=== PATIENT | female | born 1955 | race Caucasian/White ===

== ENCOUNTER 2022-12-12 03:23 | Emergency (ER) | payer MEDICAID, OTHER ==
[~2022-12-12] VITALS: Ht 165.1 cm; Wt 88.0 kg
[2022-12-12 04:23] LABS: Basophils # (auto) 0 10 ^3/uL (0-0.2); Basophils % (auto) 0.8 % (0.0-2.0); Eosinophils # (auto) 0.1 10 ^3/uL (0-0.8); Eosinophils % (auto) 2.5 % (0.0-7.0); Hemoglobin 12.9 g/dL (12.2-16.2); Lymphocytes # (auto) 1.1 10 ^3/uL (0.4-5.4); Lymphocytes % (auto) 25.5 % (10.0-50.0); Mean Corpuscular Hemoglobin 29.8 pg (28.0-32.0); Mean Corpuscular Volume 87.9 fL (80.0-100.0); Monocytes # (auto) 0.4 10 ^3/uL (0-1.3); Monocytes % (auto) 8.3 % (0.0-12.0); Neutrophils # (auto) 2.8 10 ^3/uL (1.6-8.6); Neutrophils % (auto) 62.9 % (37.0-80.0); Nucleated Red Blood Cells % 0.1 %; Red Blood Cells 4.32 10^6/uL (4.0-5.20); Red Cell Distribution Width 14.5 % (11.8-14.3); White Blood Cell 4.4 10^3/uL (4.4-10.8)
[2022-12-12 04:45] LABS: Albumin 3.5 g/dL (3.4-5.0); Calcium 8.9 mg/dL (8.5-10.1); Magnesium 2.2 mg/dL (1.6-2.6); Potassium 4.2 mmol/L (3.5-5.1)
[2022-12-12 04:48] LABS: Bilirubin, Total 0.3 mg/dL (0.2-1.0); Total Protein 6.9 g/dL (6.4-8.2)
[2022-12-12 05:07] LABS: INR 0.97 (0.9-1.15); Partial Thromboplastin Time 24.7 sec (24.6-33.4)
[2022-12-12] MEDS ORDERED: IOHEXOL 300 MG/ML 100ML BOTTLE IJ ONE (07:45)
[2022-12-12 10:03] LABS: Urine Bacteria NONE SEEN /hpf (None Seen); Urine Blood Negative /uL (Negative); Urine Specific Gravity 1.043 (1.001-1.035); Urine WBC <1 /hpf (0 - 5)
[2022-12-12 12:41] VITALS: BP 145/61
== END 2022-12-12 12:43 | disposition home or self-care (01) ==
LOC: EDBD 03:23 → ER 03:23 → EDUNIT# 03:23 → ER 12:43
DX: R06.89 Other abnormalities of breathing (principal); J38.5 Laryngeal spasm; R06.02 Shortness of breath; E89.0 Postprocedural hypothyroidism
CPT/HCPCS: 36415; 70491; 71045; 80053; 81001; 83735; 83880; 84484; 85025; 85610; 85730; 93005; 99285; Q9967

== ENCOUNTER 2024-03-17 18:22 | Inpatient (IN) | payer OTHER, MEDICAID ==
[~2024-03-17] VITALS: Ht 170.2 cm; Wt 82.0 kg
[2024-03-17 19:37] LABS: Base Excess 11.7 mmol/L (-2.0-3.0)
[2024-03-17] MEDS: ALBUTEROL SULF 2.5 MG/0.5ML(0.5%) NEB SOLN NEB ONE (19:57)
[2024-03-17] MEDS: IPRATROPIUM BROM 0.5 MG/2.5ML INH SOL NEB ONE (19:58)
[2024-03-17 20:05] LABS: Basophils # (auto) 0 10 ^3/uL (0-0.2); Basophils % (auto) 0.4 % (0.0-2.0); Eosinophils # (auto) 0 10 ^3/uL (0-0.8); Eosinophils % (auto) 0.4 % (0.0-7.0); Hematocrit 41.3 % (36.0-46.0); Lymphocytes # (auto) 0.5 10 ^3/uL (0.4-5.4); Lymphocytes % (auto) 6.7 % (10.0-50.0); Mean Corpuscular Hemoglobin 32.6 pg (28.0-32.0); Mean Corpuscular Hgb Conc. 33.9 g/dL (32.0-36.0); Mean Corpuscular Volume 96.3 fL (80.0-100.0); Monocytes # (auto) 0.7 10 ^3/uL (0-1.3); Monocytes % (auto) 8.8 % (0.0-12.0); Neutrophils # (auto) 6.6 10 ^3/uL (1.6-8.6); Neutrophils % (auto) 83.7 % (37.0-80.0); Nucleated Red Blood Cells % 0.1 %; Platelet Count (auto) 326 10^3/uL (140-450); Red Blood Cells 4.29 10^6/uL (4.0-5.20); Red Cell Distribution Width 13.4 % (11.8-14.3); White Blood Cell 7.8 10^3/uL (4.4-10.8)
[2024-03-17] MEDS: NOREPINEPHRINE 8 MG/250ML KIT 250 ML IV SCH (20:12)
[2024-03-17 20:24] LABS: Alanine Aminotransferase 124 U/L (7-40); Albumin 3.6 g/dL (3.2-4.8); Alkaline Phosphatase 118 U/L (46-116); Aspartate Aminotransferase 71 U/L (13-40); BUN/Creatinine Ratio 70.8 (10.0-20.0); Blood Urea Nitrogen 17 mg/dL (9-23); Calcium 9.1 mg/dL (8.7-10.4); Carbon Dioxide 39 mmol/L (20-30); Chloride 95 mmol/L (98-107); Glucose 112 mg/dL (74-106); Potassium 4.4 mmol/L (3.5-5.1); Sodium 133 mmol/L (136-145)
[2024-03-17 20:25] LABS: Bilirubin, Total 0.3 mg/dL (0.2-1.0); Total Protein 5.9 g/dL (5.7-8.2)
[2024-03-17 20:26] LABS: Anion Gap -1 (5-15)
[2024-03-17 20:49] LABS: INR 0.95 (0.9-1.15); Partial Thromboplastin Time 24.3 SEC (24.5-34.5); Prothrombin Time 10.1 sec (9.3-11.8)
[2024-03-17] MEDS: cefTRIAXone 1GM/50ML D5W 50 ML IV ONE (21:07)
[2024-03-17] MEDS: methylPREDNISolone SOD SUCC 125 MG/2 ML VL IV ONE (21:08)
[2024-03-17 21:37] LABS: Base Excess 11.4 mmol/L (-2.0-3.0)
[2024-03-17 21:57] LABS: Urine Bacteria FEW /hpf (None Seen); Urine Blood 2+ /uL (Negative); Urine Clarity Clear (Clear); Urine Color Yellow (Yellow); Urine Mucus FEW (None Seen); Urine Protein, UAD TRACE (Negative); Urine Specific Gravity 1.025 (1.001-1.035); Urine Urobilinogen 2 mg/dL (Negative); Urine WBC 16 /hpf (0 - 5); Urine pH 6.5 (5.0-9.0)
[2024-03-17 23:03] VITALS: BP 111/61; PULSE 89; RESP 18; TEMP 97.7; O2SAT 96
[2024-03-17] MEDS ORDERED: NITROGLYCERIN 0.4 MG SL TAB SL PRN (23:15)
[2024-03-17] MEDS ORDERED: IPRATROPIUM BROM 0.5 MG/2.5ML INH SOL NEB PRN (23:15)
[2024-03-17] MEDS ORDERED: ALBUTEROL SULF 2.5 MG/0.5ML(0.5%) NEB SOLN NEB PRN (23:15)
[2024-03-17] MEDS: SUCCINYLCHOLINE CHLORIDE 20 MG/ML 10ML VIAL IV ONE (23:30)
[2024-03-17] MEDS: ETOMIDATE (2MG/ML) 20ML VIAL IV ONE (23:30)
[2024-03-18] VITALS (9 sets, daily range): BP systolic 85–131; BP diastolic 46–80; PULSE 86–112; RESP 18; O2SAT 96–98
[2024-03-18] MEDS: SODIUM CHLORIDE 0.9% 1,000 ML IV SCH (00:27)
[2024-03-18 05:04] LABS: Base Excess 8.5 mmol/L (-2.0-3.0)
[2024-03-18 06:05] LABS: Hematocrit 40.4 % (36.0-46.0); Hemoglobin 13.7 g/dL (12.2-16.2); Mean Corpuscular Hemoglobin 32.6 pg (28.0-32.0); Mean Corpuscular Hgb Conc. 33.8 g/dL (32.0-36.0); Mean Corpuscular Volume 96.5 fL (80.0-100.0); Platelet Count (auto) 365 10^3/uL (140-450); Red Blood Cells 4.19 10^6/uL (4.0-5.20); Red Cell Distribution Width 13.3 % (11.8-14.3); White Blood Cell 8.2 10^3/uL (4.4-10.8)
[2024-03-18 06:13] LABS: Alanine Aminotransferase 116 U/L (7-40); Albumin 3.8 g/dL (3.2-4.8); Alkaline Phosphatase 101 U/L (46-116); Anion Gap 2 (5-15); Aspartate Aminotransferase 53 U/L (13-40); BUN/Creatinine Ratio 43.3 (10.0-20.0); Blood Urea Nitrogen 13 mg/dL (9-23); Calcium 9.3 mg/dL (8.7-10.4); Carbon Dioxide 37 mmol/L (20-30); Chloride 96 mmol/L (98-107); Glucose 159 mg/dL (74-106); Potassium 4.7 mmol/L (3.5-5.1); Sodium 135 mmol/L (136-145)
[2024-03-18 06:14] LABS: Bilirubin, Total 0.4 mg/dL (0.2-1.0); Total Protein 5.9 g/dL (5.7-8.2)
[2024-03-18 06:44] LABS: Band Neutrophils % (manual) 0; Basophils % (manual) 0 (0.0-2.0); Blast Cells 0; Eosinophils % (manual) 0 (0-7); Metamyelocytes % 0; Myelocytes % 0; Promyelocytes % 0; Reactive Lymphocytes 0
[2024-03-18 07:51] LABS: Lymphocytes % (manual) 1 (10.0-50.0); Monocytes % (manual) 1 (0-12); Platelet Estimate Adequate
[2024-03-18 09:34] LABS: Base Excess 15.1 mmol/L (-2.0-3.0)
[2024-03-18] MEDS: ENOXAPARIN SOD 40 MG/0.4 ML SYRINGE SC SCH (10:25)
[2024-03-18] MEDS: LORazepam 2MG/ML-1ML VIAL IV PRN (13:49)
[2024-03-18] MEDS: predniSONE 5 MG TAB PO SCH (16:15)
[2024-03-18] MEDS ORDERED: CEVI30CA8 PO (16:20)
[2024-03-18] MEDS ORDERED: MIRT1TAB38 PO (16:20)
[2024-03-18] MEDS ORDERED: CARV3.1240 PO (16:20)
[2024-03-18] MEDS ORDERED: SERT-289 PO (16:20)
[2024-03-18] MEDS ORDERED: LEVO125T7 PO (16:26)
[2024-03-18] MEDS: methylPREDNISolone SOD SUCC 40 MG/ML VL IV ONE (20:14)
[2024-03-18] MEDS ORDERED: cefTRIAXone 1GM/50ML D5W 50 ML IV SCH (21:00)
[2024-03-18] MEDS: CEVIMELINE PO SCH (22:00)
[2024-03-18] MEDS: cefTRIAXone 1GM/50ML D5W 50 ML IV SCH (23:49)
[2024-03-19] VITALS (13 sets, daily range): BP systolic 84–148; BP diastolic 53–85; PULSE 80–112; RESP 16–18; TEMP 97.5–98; O2SAT 95–100
[2024-03-19] MEDS: NOREPINEPHRINE 8 MG/250ML KIT 250 ML IV SCH (08:22)
[2024-03-19 09:29] LABS: Base Excess 14.8 mmol/L (-2.0-3.0)
[2024-03-19] MEDS: Jevity 1.2 Cal/Fiber 1 Liter GT SCH (10:13)
[2024-03-19] MEDS: SERTRALINE HCL 50 MG TAB PO SCH (10:29)
[2024-03-19] MEDS: MORPHINE SULFATE INJ 2 MG/ml SYRG IV PRN (22:29)
[2024-03-20] VITALS (22 sets, daily range): BP systolic 119–157; BP diastolic 56–82; PULSE 81–108; RESP 14–20; TEMP 97.4–99.6; O2SAT 93–100
[2024-03-20] MEDS: CARVEDILOL 3.125 MG TAB PO SCH (10:00)
[2024-03-20 14:46] LABS: Base Excess 13.8 mmol/L (-2.0-3.0)
[2024-03-20] MEDS: ONDANSETRON HCL 4 MG/2 ML VIAL IV PRN (15:50)
[2024-03-20] MEDS: ACETAMINOPHEN 325 MG TAB PO PRN (17:40)
[2024-03-21] VITALS (23 sets, daily range): BP systolic 138–164; BP diastolic 71–84; PULSE 74–104; RESP 17–19; TEMP 97.6–99; O2SAT 91–99
[2024-03-21] MEDS: MORPHINE SULFATE INJ 2 MG/ml SYRG IV PRN (00:33)
[2024-03-21] MEDS: LORazepam 0.5 MG TAB GT ONE (16:18)
[2024-03-22] VITALS (10 sets, daily range): BP systolic 126–155; BP diastolic 72–90; PULSE 75–96; RESP 19; TEMP 97.6–98.6; O2SAT 95–100
== END 2024-03-22 11:05 | disposition hospice, home (50) | DRG 189 ==
LOC: EDUNIT# 18:22 → EDBD 18:22 → ER 18:22 → CATH ICU 23:21 → TELE 03-18 23:41 → TELE-CENTR 03-19 15:05
PROVIDERS: ADMIT Nurse Practitioner; ATTEND Nurse Practitioner Acute Care
PROC: 5A09457 Assistance with Respiratory Ventilation, 24-96 Consecutive Hours, Continuous Positive Airway Pressure (ICD-10-PCS; 2024-03-17)
PROC: 05HC33Z Insertion of Infusion Device into Left Basilic Vein, Percutaneous Approach (ICD-10-PCS; principal; 2024-03-18)
PROC: B54NZZA Ultrasonography of Left Upper Extremity Veins, Guidance (ICD-10-PCS; 2024-03-18)
PROC: 5A09357 Assistance with Respiratory Ventilation, Less than 24 Consecutive Hours, Continuous Positive Airway Pressure (ICD-10-PCS; 2024-03-19)
PROC: 5A09357 Assistance with Respiratory Ventilation, Less than 24 Consecutive Hours, Continuous Positive Airway Pressure (ICD-10-PCS; 2024-03-20)
PROC: 5A09357 Assistance with Respiratory Ventilation, Less than 24 Consecutive Hours, Continuous Positive Airway Pressure (ICD-10-PCS; 2024-03-21)
PROC: 5A09357 Assistance with Respiratory Ventilation, Less than 24 Consecutive Hours, Continuous Positive Airway Pressure (ICD-10-PCS; 2024-03-22)
DX: J96.21 Acute and chronic respiratory failure with hypoxia (principal); G12.21 Amyotrophic lateral sclerosis; N39.0 Urinary tract infection, site not specified; E87.3 Alkalosis; R47.01 Aphasia; J96.22 Acute and chronic respiratory failure with hypercapnia; Z51.5 Encounter for palliative care; F32.A Depression, unspecified; I10 Essential (primary) hypertension; E03.9 Hypothyroidism, unspecified; I95.9 Hypotension, unspecified; Z79.899 Other long term (current) drug therapy; Z82.49 Family history of ischemic heart disease and other diseases of the circulatory system
CPT/HCPCS: 36415; 36600; 71045; 76705; 80053; 81001; 82805; 82962; 83735; 83880; 84484; 85007; 85025; 85027; 85379; 85610; 85730; 93005; 93970; 94640; 94660; 96365; 96375; 99291; G0378; J2405